=== PATIENT | female | born 1930 | race Two or more races ===

== ENCOUNTER 2019-06-28 19:33 | Inpatient (IN) | payer MEDICARE ==
[~2019-06-28] VITALS: Ht 165.1 cm; Wt 45.8 kg
[2019-06-28] MEDS ORDERED: CEFEPIME 1 GM in IV D5W 50 ML IV STA (19:40)
[2019-06-28] MEDS ORDERED: VANCOMYCIN 1 GM in IV D5W 250 ML IV STA (19:40)
[2019-06-28] MEDS ORDERED: IV NS 0.9% 1,000 ML IV ONE (19:40)
--- NOTE | 2019-06-28 19:41 | NUR ---
PT BIBRA C/O SYNCOPE PER . + HAS A FEVER. PER RA PT HAD THE HEATER ON ALL DAY WHICH HAS FEVER NOW. PER ASSESSMENT PT ABLE TO FOLLOW COMMANDS BUT UNABLE TO GIVE NAME OR . PT INTIALLY PALCED ON 2L NC SAT 94. NC WAS REMOVED AND PT IS SAT 90 ON ROOM AIR. ICE PACKS PLACED AND COOL BATH GIVEN TO PT. PT PLACED ON MONITOR AND PULSE OX. VSS. NO ACUTE DISTRESS NOTED. WILL CONTINUE TO MONITOR THE PT.
[2019-06-28 19:54] LABS: BASOPHILS % (AUTO) 0.4 % (0.0-2.0); EOSINOPHILS % (AUTO) 0.8 % (0.0-6.0); HEMATOCRIT 39 % (33-45); LYMPHOCYTES # (AUTO) 0.4 /CMM (0.8-4.8); LYMPHOCYTES % (AUTO) 4.5 % (20.0-44.0); MEAN CORPUSCULAR HGB CONC 34 g/dl (31.0-36.0); MEAN CORPUSCULAR VOLUME 93 fL (82-100); MONOCYTES # (AUTO) 0.3 /CMM (0.1-1.30); MONOCYTES % (AUTO) 3.3 % (2.0-12.0); NEUTROPHILS # (AUTO) 7.9 /CMM (1.8-8.9); PLATELET COUNT (AUTO) 242 /CMM (150-450); RED BLOOD CELL COUNT(AUTO) 4.18 MIL/uL (4.0-5.2); WHITE BLOOD COUNT (AUTO) 8.6 K/uL (4.3-11.0)
[2019-06-28] MEDS ORDERED: CEFEPIME 1 GM VIAL ONE (19:54)
[2019-06-28] MEDS ORDERED: VANCOMYCIN 1 GM VIAL ONE (19:54)
[2019-06-28] MEDS ORDERED: ACETAMINOPHEN 650 MG/SUPP.RECT RC ONE ×2 (19:54→20:00)
--- NOTE | 2019-06-28 19:57 | NUR ---
LESLEY (NIECE) CONTACT INFORMATION: [phone] [facility]: [place]
--- NOTE | 2019-06-28 20:06 | NUR ---
BLOOD CUTLURES COLLECTED AND SENT TO LAB FOR TESTING
[2019-06-28 20:10] LABS: ALANINE AMINOTRANSFERASE 23 U/L (12-78); ALBUMIN 3.7 g/dL (3.4-5.0); ALKALINE PHOSPHATASE 99 U/L (46-116); ASPARTATE AMINOTRANSFERASE 20 U/L (15-37); BILIRUBIN,DIRECT 0.1 mg/dL (0.0-0.2); BILIRUBIN,TOTAL 0.4 mg/dL (0.2-1.0); CALCIUM, SERUM 8.6 mg/dL (8.5-10.1); CARBON DIOXIDE 23 mmol/L (21-32); CHLORIDE 108 mmol/L (98-107); CREATININE 1.4 mg/dL (0.6-1.3); GLUCOSE 200 mg/dL (74-106); POTASSIUM 3.2 mmol/L (3.5-5.1); SODIUM SERUM 144 mmol/L (136-145); TOTAL PROTEIN, SERUM 7.4 g/dL (6.4-8.2); UREA NITROGEN, BLOOD 23 mg/dL (7-18)
--- NOTE | 2019-06-28 20:10 | NUR ---
URINE COLLECTED AND SENT TO LAB FOR TESTING
--- NOTE | 2019-06-28 20:11 | NUR ---
XRAY AT BEDSIDE
[2019-06-28 20:22] LABS: APPEARANCE,URINE Slightly Cloudy (CLEAR); BILIRUBIN,URINE SMALL (NEGATIVE); BLOOD, URINE Moderate Ery/uL (NEGATIVE); COLOR,URINE Yellow (YELLOW); KETONES,URINE Trace (NEGATIVE); LEUKOCYTE ESTERASE ,URINE Large (NEGATIVE); NITRITE, URINE Positive (NEGATIVE); PROTEIN,URINE 100 mg/dl (NEGATIVE); UGLUCOSE Negative (NEGATIVE); UROBILINOGEN,URINE 0.2 EU/dL (0.2)
[2019-06-28 20:27] LABS: BACTERIA,URINE Moderate /HPF (None Seen); SQUAMOUS EPITHELIAL CELL,UR Few /HPF (None Seen); WBC,URINE 51-80 /HPF (0-3)
[2019-06-28 20:33] LABS: B-TYPE NATRIURETIC PEPTIDE 1339 PG/ML (0-125)
--- NOTE | 2019-06-28 20:46 | NUR ---
PT RESTING COMFORTABLY. VSS. WILL COTNINUE TO MONITOR.
[2019-06-28 20:51] LABS: C-REACTIVE PROTEIN 0.4 mg/dL (0.0-0.9); CREATINE KINASE, TOTAL 51 U/L (26-192); FERRITIN 147 ng/mL (8-388)
--- NOTE | 2019-06-28 21:02 | NUR ---
CALLED LAB FOR COVID TEST
--- NOTE | 2019-06-28 21:27 | NUR ---
COVID TEST SENT TO LAB
--- NOTE | 2019-06-28 21:27 | NUR ---
RT AT BEDSIDE FOR ABG
--- NOTE | 2019-06-28 21:27 | NUR ---
MAUREEN DISCOVERY MANAGER AT BEDSIDE.
--- NOTE | 2019-06-28 21:27 | NUR ---
TEMP 98.2
--- NOTE | 2019-06-28 21:35 | NUR ---
BED ASSIGNMENT 104
[2019-06-28 21:40] LABS: ABG OXYGEN SATURATION 87.2 % (92.0-98.5); ABG PH 7.382 (7.350-7.450); ABG PO2 56.9 mmHg (75.0-100.0); AaDO2 53.3 mmHg; COHb 0.8 % (0.5-1.5); MetHb 0.5 % (0.0-1.5); O2Hb 86.1 % (94.0-97.0); SITE, ABG Right Radial; VENT MODE, BG ROOM AIR
--- NOTE | 2019-06-28 21:43 | NUR ---
PT PLACED ON 2L NC SAT 97.
--- NOTE | 2019-06-28 22:14 | NUR ---
REPORT GIVEN TO HOOD SEGURA FOR RICHA
[2019-06-28] MEDS ORDERED: ENOXAPARIN SODIUM 60 MG/0.6 ML DISP.SYRIN SQ STA (22:17)
--- NOTE | 2019-06-28 22:42 | NUR ---
PT TRANSFERED PER ACLS PROTOCOL
[2019-06-28 23:00] VITALS: BP 173/87
[2019-06-28] MEDS ORDERED: ZOLPIDEM TARTRATE 5 MG TABLET PO PRN (23:30)
[2019-06-28] MEDS ORDERED: ACETAMINOPHEN 325 MG TABLET PO PRN (23:30)
[2019-06-28] MEDS ORDERED: ONDANSETRON HCL/PF 4 MG/2 ML VIAL IVP PRN (23:30)
[2019-06-28] MEDS ORDERED: DEXTROSE 50%-WATER 50 ML DISP.SYRIN IV PRN (23:30)
[2019-06-28] MEDS ORDERED: MAGNESIUM HYDROXIDE 30 ML UDC PO PRN (23:30)
[2019-06-28] MEDS ORDERED: HYDROCODONE/APAP 5/325MG 1 EACH TABLET PO PRN (23:30)
[2019-06-28] MEDS ORDERED: Z GUARD REMEDY 2 OZ OINT TP PRN (23:30)
[2019-06-29] VITALS (9 sets, daily range): BP systolic 139–158; BP diastolic 59–81
--- NOTE | 2019-06-29 00:14 | NUR ---
ADMISSION NOTES: RECEIVED REPORT FROM BLANCHE PT WAS BROUGHT TO THE UNIT VIA GURNEY AT 2240. PT A/O X1-2 ON 2L OXYGEN VIA MN RUSSIAN SPEAKING, CHAS RADFORD HELP WITH TRANSLATION. SKIN ASSESSMENT PERFORMED. ASSISTED BOILING HOUSE HAND IN PROVIDING BED BATH TO PT. ORIENTED PT TO UNIT POLICY AND HOURLY ROUNDING HOWEVER PT UNABLE TO COMPREHEND DUE TO MENTAL STATUS. IV ACCESS PATENT AND FLUSHING WELL, ON HL. TELE MONITORING SINUS RHYTHM HR 67. VS TAKENA ND RECORDED. INVENTORY OF BELONGINGS COMPLETED BY CHAS RADFORD. CONTACTED PT'S POWER OF ATTY LESLEY FRENÁNDEZ WHO WOULD LIKE TO KEEP PT ON DNR AND DNI, NOTIFIED HOSPITALIST JOSE KENNEL ASSISTANT. PER LESLEY, PT WAS ON HOSPICE AT HOME, AND IF NEEDS FURTHER INFO REGARDING HER MEDS TO PLEASE CALL [facility] AT [phone]. CONTACTED HOSPICE CARE BUT NO ANSWER. WILL F/U IN AM. PER NIECE PT HAS HX OF DEMENTIA AND HTN, THROID PROBLEM. NO FLU AND PNA VACCINE. DISCUSSED ABOUT PLAN OF CARE. NOTIFIED KENNEL ASSISTANT REGARDING PT'S BP AND PER KENNEL ASSISTANT WILL ORDER METOPROLOL. ALL ADMISSION QUESTIONNAIRE COMPLETED, ALL INFO OBTAINED FROM PT'S POWER OF ATTY. SAFETY PRECAUTIONS FOR FALL INITIATED, CALL LIGHT IN REACH, WILL CONTINUE MONITORING PT.
[2019-06-29] MEDS: POTASSIUM CHLORIDE 20 MEQ POWDER PACKET PO SCH ×2 (00:27→08:10)
[2019-06-29] MEDS: IV NS 0.9% 1,000 ML IV PRN (00:28)
[2019-06-29] MEDS: METOPROLOL TARTRATE 25 MG TABLET PO SCH ×3 (00:56→22:00)
--- NOTE | 2019-06-29 03:03 | NUR ---
RN NOTES: NOTED PT'S HR 47, PT IS SLEEPING. WENT TO PT'S ROOM, PT RESPONSIVE, AROUSES TO TACTILE STIMULI, PT HR 56 NOW SHE'S AWAKE. REPOSITION PT AT THIS TIME. TAX COMPLIANCE REPRESENTATIVE AWARE.
--- NOTE | 2019-06-29 04:30 | NUR ---
rn notes: [facility] latest result of troponin 0.108. next trop order is 0800a. awaiting for response.
--- NOTE | 2019-06-29 04:54 | NUR ---
rn notes: telephone conversation with hospitalist, no new order receive for latest troponin result.
--- NOTE | 2019-06-29 06:29 | NUR ---
END OF SHIFT REPORT: PT REMAINS CONFUSED ON 2L OXYGEN VIA NC REMAINS ON CONTINUOUS PULSE OXIMETRY. ON SINUS RHYTHM HR 62. IV ACCESS REMAINS PATENT AND FLUSHING WELL, INFUSING WITH IVF ORDERED. ALL DUE MEDS ADMINISTERED. AM CARE PROVIDED. SAFETY PRECAUTIONS FOR FALL REMAINS ENGAGED, CALL LIGHT IN REACH, WILL ENDORSE TO DAY RN FOR CONTINUITY OF CARE.
--- NOTE | 2019-06-29 07:45 | NUR ---
EXTRUDING MACHINE OPERATOR OPENING NOTES PT A/OX1, CONFUSED, ROMANIAN SPEAKING. RESPIRATION UNLABORED, ON O2 AT 2LPM VIA N/C SATING 95-99%, ABD SOFT AND NON DISTENDED WITH ACTIVE BOWEL SOUNDS, DIAPER USE. NO S/SX OF PAIN AND DISCOMFORT. SKIN WARM TO TOUCH AND DRY. IV SITE AT RIGHT FA #18 AND LFA #22, PT WITH ORDER OF NS AT 75 ML/HR, STOPPED DUE TO PRESENCE OF HIGH BP, SOB AND COUGHING PER RN REPORT PRINCIPLE SOFTWARE ENGINEER, BOTH IV SITE PATENT IN FLUSHING, SITE WITH NO INFILTRATION. WILL CONTINUE TO MONITOR. TELE MONITOR SHOWS SINUS RHYTHM 65. ON ISOLATION DUE TO PENDING COVID-19 RESULT. BED IN LOW LOCKED POSITION, SR X2 UP FOR SAFETY. CALL LIGHT WITHIN REACH. WILL CONTINUE TO MONITOR CARE
[2019-06-29] MEDS: BLOOD SUGAR DIAGNOSTIC 1 EACH STRIP IN SCH ×4 (08:10→22:35)
[2019-06-29 08:43] LABS: BASOPHILS % (AUTO) 0.7 % (0.0-2.0); EOSINOPHILS % (AUTO) 1.1 % (0.0-6.0); HEMATOCRIT 38 % (33-45); HEMOGLOBIN 12.6 g/dL (11.5-14.8); LYMPHOCYTES # (AUTO) 0.6 /CMM (0.8-4.8); LYMPHOCYTES % (AUTO) 13.4 % (20.0-44.0); MEAN CORPUSCULAR HGB CONC 34 g/dl (31.0-36.0); MEAN CORPUSCULAR VOLUME 94 fL (82-100); MONOCYTES # (AUTO) 0.3 /CMM (0.1-1.30); MONOCYTES % (AUTO) 6.2 % (2.0-12.0); NEUTROPHILS # (AUTO) 3.6 /CMM (1.8-8.9); NEUTROPHILS % (AUTO) 78.6 % (43.0-81.0); PLATELET COUNT (AUTO) 174 /CMM (150-450); RED BLOOD CELL COUNT(AUTO) 4.02 MIL/uL (4.0-5.2); WHITE BLOOD COUNT (AUTO) 4.6 K/uL (4.3-11.0)
[2019-06-29 09:05] LABS: CALCIUM, SERUM 8.5 mg/dL (8.5-10.1); CREATININE 0.8 mg/dL (0.6-1.3); MAGNESIUM 2.2 mg/dL (1.8-2.4); PHOSPHORUS 2.9 mg/dL (2.5-4.9); POTASSIUM 4.3 mmol/L (3.5-5.1)
--- NOTE | 2019-06-29 09:50 | NUR ---
ELECTROLYSIS NEEDLE OPERATOR NOTES REPORT GIVEN TO DR. MARIA PER ASSESSMENT IF IVF INFUSED - PRESENCE OF SOB, SBP GOES UP TO 150-170'S. PER MD, OKAY NOT TO GIVE, ONLY PRN.
--- NOTE | 2019-06-29 09:56 | NUR ---
CRYSTAL GROWING TECHNICIAN NOTES PT ON METOPROLOL TARTRATE 25 MG, REPORT GIVEN TO DR. MARIA DUE TO HR TRENDING 50'S IF MEDICATION GIVEN. PER MD TO HOLD IF HR <50. PARAMETER NOTED AND CARRIED OUT. WILL CONTINUE TO MONITOR
[2019-06-29] MEDS ORDERED: LEVO50TA8 PO (10:33)
[2019-06-29] MEDS ORDERED: CHOL500052 PO (10:33)
[2019-06-29] MEDS ORDERED: ACET-2605 PO (10:33)
[2019-06-29] MEDS ORDERED: METO25TA20 PO (10:33)
--- NOTE | 2019-06-29 13:20 | NUR ---
PLATE FITTER NOTES PT ASLEEP. CONTINUE ON O2 AT 2LPM N/C 97-99%, TOLERATING WELL. HR RANGING 54-63 BPM. HOB ELEVATED FOR BREATHING EXPANSION. CONTINUE TO MONITOR
--- NOTE | 2019-06-29 15:42 | NUR ---
SUPERVISOR STAVE CUTTING NOTES BED BATH GIVEN TO PT. PPE USED PROPERLY. PT AT 2 LPM VIA N/C SATING 100%, REMAINED IN CONTACT ISOLATION DUE TO RULE OUT OF COVID-19. CONTINUE TO MONITOR
--- NOTE | 2019-06-29 18:43 | NUR ---
MINE BOSS CLOSING NOTES PT A/OX 1, CONFUSED DUE TO DEMENTIA. RESPIRATION WITH NO PRESENCE OF ACUTE RESPIRATORY DISTRESS, ON O2 AT 2LPM VIA N/C SATING 96-100%, SOB IN MINIMAL EXERTION SUCH REPOSITIONING AND EPISODES OF ANXIETY BUT ABLE TO DIVERT, HOB SEMI FOWLERS. ABD SOFT AND NON DISTENDED WITH ACTIVE BOWEL SOUNDS, BM X1, DIAPER CHANGE X2. SKIN WARM TO TOUCH AND DRY, WOUND TREATMENT ON SACRAL WITH ZGUARD AND MEPILEX, REPOSITION Q2 TOLERATED, BLE/HEELS OFFLOAD. PT HAS NO S/SX OF PAIN AND DISCOMFORT. ON CONTACT/DROPLET ISOLATION DUE TO COVID-19 PENDING. PPE USED PROPERLY. IV SITE AT RFA #18 AND LFA #22, PATENT IN FLUSHING, SITE WITH NO S/SX OF INFILTRATION, NS HELD DUE TO SOB PRESENCE, MD AWARE. BED IN LOW LOCKED POSITION, SR X2 FOR SAFETY. TELE MONITOR SHOWS SR 77 WITH EPISODES OF SINUS BRADYCARDIA 50'S. ENDORSED PT CARE TO NEXT SHIFT.
--- NOTE | 2019-06-29 19:50 | NUR ---
TELE/RN NOTES PATIENT IN BED, AWAKE, ABLE TO MAKE EYE CONTACT. ALERT X1, COOPERATIVE TO CARE, ON TELE MONITOR READING AT SR 67. ON OXYGEN VIA NC AT 4LITER OXYGEN, PATIENT SKIN FRAGILE WITH BLE DISCOLORATION. INCONTINENT AND FEEDER REQUIRE EXTENSIVE ASSISTANCE , WITH LOW GRADE FEVER OF 99.7 DEG F. RECEIVED ENDORSEMENT FROM AM RN FOR RICHA. PATIENT ISOLATION FOLLOWED PROTOCOL, WASHED HAND PROPERLY PPE DONNED AND DOFF. BED ALARM ON. WILL PROVIDE CARE. ON IN ANTIBIOTIC THERAPY MONITORING FOR ANY CHANGES IN VITAL SIGNS, BLOOD SUGAR CHECK MONITORING AND MONITORING FOR ANY BLEEDING PATIENT IS ON ANTICOAGULANT THERAPY.
[2019-06-29] MEDS: CEFTRIAXONE 1 G in IV D5W 50 ML IV SCH (20:16)
[2019-06-29] MEDS: ENOXAPARIN SODIUM 40 MG/0.4 ML DISP.SYRIN SQ SCH (22:02)
--- NOTE | 2019-06-29 22:02 | NUR ---
blood sugar check at 113. Addendum: 06/29/19 at 2220 by CHARO ALCANTAR RN NOT FOR THE PATIENT BS RESULT. PLS DISREGARD.
--- NOTE | 2019-06-29 22:54 | NUR ---
BLOOD SUGAR CHECK AT 93. PATIENT GAVE SOME SNACKS APPLESAUCE.
[2019-06-30] VITALS (8 sets, daily range): BP systolic 134–158; BP diastolic 62–80
--- NOTE | 2019-06-30 06:41 | NUR ---
104-TELE/RN CLOSING NOTES PATIENT ABLE TO SLEEP FEW HOURS INTERMITENTLY, ON OXYGEN VIA NC WITHSATURATION RATE OF 94%. TELE MONITOR AT SR 67. KEPT COMFORTABE, SKIN INTACT AND DRY. WITH CONFUSION, REQUIRE REORIENTATION. ISOLATION PRECAUTION FOLLOWED. SAFETY MEASURES PROVIDED, OFFERED AND PROVIDED SNACK, BED LOCKED, CALL LIGHTS WITHIN REACH. WILL MONITOR AND ENDORSE TO AM RN FOR RICHA.
[2019-06-30 07:03] LABS: BASOPHILS % (AUTO) 0.7 % (0.0-2.0); EOSINOPHILS % (AUTO) 4.6 % (0.0-6.0); HEMATOCRIT 33 % (33-45); HEMOGLOBIN 11.4 g/dL (11.5-14.8); LYMPHOCYTES # (AUTO) 0.6 /CMM (0.8-4.8); LYMPHOCYTES % (AUTO) 14.2 % (20.0-44.0); MEAN CORPUSCULAR HGB CONC 34 g/dl (31.0-36.0); MEAN CORPUSCULAR VOLUME 93 fL (82-100); MONOCYTES # (AUTO) 0.3 /CMM (0.1-1.30); MONOCYTES % (AUTO) 7.1 % (2.0-12.0); NEUTROPHILS % (AUTO) 73.4 % (43.0-81.0); PLATELET COUNT (AUTO) 144 /CMM (150-450); RED BLOOD CELL COUNT(AUTO) 3.55 MIL/uL (4.0-5.2); WHITE BLOOD COUNT (AUTO) 4.1 K/uL (4.3-11.0)
[2019-06-30 07:12] LABS: CALCIUM, SERUM 7.9 mg/dL (8.5-10.1); CREATININE 0.8 mg/dL (0.6-1.3); POTASSIUM 3.9 mmol/L (3.5-5.1)
--- NOTE | 2019-06-30 07:30 | NUR ---
LARRIMAN HELPER OPENING NOTES PT A/OX1, CONFUSED, TAMAZIGHT SPEAKING. RESPIRATION UNLABORED, ON O2 AT 2LPM VIA N/C SATING 95%, NOT IN ANY DISTRESS, RESPIRATION UNLABORED, SR HR 64, NO SIGNS OF PAIN OR DISCOMFORT,NO GRIMACING, LFA AND RFA IV ACCESS PULLED OUT. WILL RE START IN ANOTHER SITE. ON 2 GM SODIUM, CRUSH MEDS, ON ISOLATION DUE TO PENDING COVID-19 RESULT. SEE NURSING FOWSHEET FOR SKIN ISSUES. BED IN LOW LOCKED POSITION, SR X2 UP FOR SAFETY. CALL LIGHT WITHIN REACH. WILL CONTINUE TO MONITOR CARE
[2019-06-30] MEDS: BLOOD SUGAR DIAGNOSTIC 1 EACH STRIP IN SCH ×4 (08:03→22:50)
[2019-06-30] MEDS: METOPROLOL TARTRATE 25 MG TABLET PO SCH ×2 (09:07→20:06)
--- NOTE | 2019-06-30 09:30 | NUR ---
RN NOTES DUE MEDS GIVEN
--- NOTE | 2019-06-30 10:20 | NUR ---
RN NOTES IV RESTARTED ON LEFT FOREARM G 22. GOOD BLOOD RETURN
[2019-06-30] MEDS ORDERED: MISCELLANEOUS MED 1 EA EA PO PRN (14:30)
--- NOTE | 2019-06-30 18:26 | NUR ---
PHYSIOGNOMIST CLOSING NOTES PT RESTING, A/OX1, CONFUSED, BENGALI SPEAKING. RESPIRATION UNLABORED, ON O2 AT 2LPM VIA N/C SATING 93% -95%, NOT IN ANY DISTRESS, RESPIRATION UNLABORED, SR HR 64-80s, NO SIGNS OF PAIN OR DISCOMFORT,NO GRIMACING, LEFT FA G 22 IV ACCESS FLUSHES WELL. SITE CLEAR. ON 2 GM SODIUM, PUREED, CRUSH MEDS, ASPIRATION PRECAUTION, ON ISOLATION DUE TO PENDING COVID-19 RESULT. BED IN LOW LOCKED POSITION, SR X2 UP FOR SAFETY. TURNED AND REPOSITIONED Q 2HOURS. PM CARE DONE EARLIER. CALL LIGHT WITHIN REACH. ALL NEEDS MET. NO OTHER SIGNIFICANT CHANGES. WILL ENDORSE TO NEXT SHIFT FOR RICHA.
--- NOTE | 2019-06-30 19:30 | NUR ---
RN OPENING NOTE PT RESTING, A/OX1, CONFUSED, GERMAN SPEAKING. RESPIRATION UNLABORED, ON O2 AT 2LPM VIA N/C SATURATING AT 92% NOT IN ANY DISTRESS, RESPIRATION UNLABORED, NO SIGNS OF PAIN OR DISCOMFORT,NO GRIMACING, IV TO LEFT HAND FLUSHING WELL PATENT AND INTACT. ASPIRATION PRECAUTION IN PLACE, SOFT RESTRAINTS ON BILATERALLY. BED LOCKED AND IN LOWEST POSITION, SR X2 UP FOR SAFETY. CALL LIGHT WITHIN REACH. WILL CONTINUE TO MONITOR PT.
[2019-06-30] MEDS: CEFTRIAXONE 1 G in IV D5W 50 ML IV SCH (20:51)
[2019-06-30] MEDS: INSULIN REGULAR, HUMAN 100 UNIT/ML 3 ML VIAL SQ PRN (22:57)
[2019-06-30] MEDS: ENOXAPARIN SODIUM 40 MG/0.4 ML DISP.SYRIN SQ SCH (23:21)
--- NOTE | 2019-06-30 23:22 | NUR ---
RN NOTE SPOKE TO JOSE REDDY PT CAN GET LOVENOX. AWARE OF PLATELETS TRENDING DOWN. PT HAS NO S/S OG BLEEDING.
[2019-07-01] VITALS: BP 173/72
--- NOTE | 2019-07-01 01:20 | NUR ---
RN NOTE REPORT GIVEN TO IMELDA TRIMBLE. OKAY TO TRANSFER PT.
[2019-07-01 01:26] VITALS: BP 149/83
--- NOTE | 2019-07-01 01:26 | NUR ---
MS RN OPENING NOTE RECEIVED PATIENT IN BED. A/OX2, ON OXYGEN 4L/MIN NASAL CANNULA, RESPIRATIONS ARE EVEN AND UNLABORED, NO S/S SOB NOTED. NO S/S PAIN AT THIS TIME. IN NO APPARENT DISTRESS. IV ACCESS IN LEFT HAND #22 PATENT AND SALINE LOCKED, ON BILATERAL SOFT WRIST RESTRAINTS, NO REDNESS NOTED, 2 FINGER BREATHS OF ROOM. BED IS LOW AND LOCKED, HOB ELEVATED IN SEMI FOWLERS, ALICIA RIALS UP X3, CALL LIGHT WITHIN REACH. WILL CONTINUE TO MONITOR.
--- NOTE | 2019-07-01 02:55 | NUR ---
MS RN NOTE TRANSFER OF CARE TO BRENNA SEGURA.
--- NOTE | 2019-07-01 03:00 | NUR ---
RN medsurg opening notes Received Pt from IMELDA Schulte. Pt is resting in bed comfortably. Pt is alert and orientedX2. Pt speaks Kosovan and able to make needs known. Respiration is normal. No SOB. No S/S of distress noted. IV sites at L hand # 22 is clean, intact, and infusing well NS @ 75 ml/hr. Bilateral soft wrist restraints is intact, skin is warm to touch and circulation is check Q 2 hr. Turning and repositioning Q 2 HR. Offered oral fluids. Safety precautions is maintained. Bed at low position, brakes locked, side rails upX2, bed alarm is on and call light is within reach. Will continue to monitor.
[2019-07-01] MEDS: IV NS 0.9% 1,000 ML IV PRN (03:18)
--- NOTE | 2019-07-01 07:07 | NUR ---
RN medsurg closing notes Pt is resting in bed comfortably. Pt is alert and orientedX2. Respiration is normal in 4 L NC. No SOB. No S/S of distress noted. IV sites at L hand # 22 is clean, intact, and infusing well NS @ 75 ml/hr. Bilateral soft wrist restraints is intact, skin is warm to touch and circulation is check Q 2 hr. Turned and repositioned Q 2HR. Kept Pt clean, dry and comfortable. Safety precautions is maintained. Bed at low position, brakes locked, side rails upX2, bed alarm is on and call light is within reach. Will endorse to morning nurse for RICHA.
--- NOTE | 2019-07-01 07:10 | NUR ---
MS RN NOTES RECEIVED PATIENT IN BED, ALERT AND AWAKE. HOB ELEVATED. PATIENT REMOVED O2 AND WRIST RESTRAINTS. DESPITE OF EXPLANATIONS AND EDUCATION, PATIENT CONTINUES TO REMOVE IV TUBING AND RESTRAINTS. LEFT HAND # 22 INTACT AND PATENT INFUSING NS @ 75 ML/HR. BED IN LOWEST POSITION, LOCKED. BED ALARM ON. CALL LIGHT WITHIN REACH.
[2019-07-01] MEDS ORDERED: LEVOTHYROXINE SODIUM 50 MCG TABLET PO SCH (07:30)
[2019-07-01] MEDS: BLOOD SUGAR DIAGNOSTIC 1 EACH STRIP IN SCH ×2 (07:42→11:50)
[2019-07-01 08:00] VITALS: BP 160/80
[2019-07-01] MEDS: METOPROLOL TARTRATE 25 MG TABLET PO SCH (08:12)
--- NOTE | 2019-07-01 08:12 | NUR ---
MS RN NOTES PATIENT PULLED OUT IV ACCESS WITH CATHETER TIP IN PLACE.
[2019-07-01 08:31] LABS: BASOPHILS % (AUTO) 0.5 % (0.0-2.0); EOSINOPHILS % (AUTO) 1.8 % (0.0-6.0); HEMATOCRIT 37 % (33-45); HEMOGLOBIN 12.5 g/dL (11.5-14.8); LYMPHOCYTES # (AUTO) 0.5 /CMM (0.8-4.8); LYMPHOCYTES % (AUTO) 10.5 % (20.0-44.0); MEAN CORPUSCULAR HGB CONC 34 g/dl (31.0-36.0); MEAN CORPUSCULAR VOLUME 92 fL (82-100); MONOCYTES # (AUTO) 0.5 /CMM (0.1-1.30); MONOCYTES % (AUTO) 9.1 % (2.0-12.0); NEUTROPHILS # (AUTO) 3.9 /CMM (1.8-8.9); NEUTROPHILS % (AUTO) 78.1 % (43.0-81.0); PLATELET COUNT (AUTO) 176 /CMM (150-450); RED BLOOD CELL COUNT(AUTO) 4.08 MIL/uL (4.0-5.2)
--- NOTE | 2019-07-01 08:33 | NUR ---
WOUND CARE CONSULT: PT PREDSENTS WITH VERY FRAGILE SKIN, SCAR TO MIDBACK, DISCOLORATION TO BILATERAL ARMS, SACRAL INTACT DEEP TISSUE INJURY AND RAISED LESION TO PERIANAL AREA, PRESENT ON ADMISSION. RECOMMENDATIONS MADE FOR SKIN PROTECTION. DISCUSSED WITH NURSING STAFF. PT ON SOLOMON ISOFLEX LOW AIRLOSS BED. WILL SEE PRN. RAMON IN AGREEMENT WITH PLAN OF CARE. Addendum: 07/01/19 at 0834 by MARLON KUMAR WNDNU Amended: Links added.
[2019-07-01 08:51] LABS: CALCIUM, SERUM 8.3 mg/dL (8.5-10.1); CREATININE 0.7 mg/dL (0.6-1.3); POTASSIUM 3.5 mmol/L (3.5-5.1)
[2019-07-01] MEDS ORDERED: METOPROLOL TARTRATE 25 MG TABLET PO SCH ×2 (09:00→21:00)
--- NOTE | 2019-07-01 09:15 | NUR ---
MS RN NOTES PATIENT UNABLE TO BE BROUGHT TO CT DUE TO PATIENT NON COMPLIANT, CONFUSED AND UNABLE TO REMAIN STILL. WILL ATTEMPT AGAIN LATER PER CT. I
--- NOTE | 2019-07-01 09:27 | NUR ---
Patient uncooperative. IMELDA Ochoa aware and will notifiy Radiology when patient is calm and ready.
[2019-07-01] MEDS ORDERED: VALSARTAN 80 MG TABLET PO SCH (11:00)
[2019-07-01] MEDS: INSULIN REGULAR, HUMAN 100 UNIT/ML 3 ML VIAL SQ PRN (11:51)
--- NOTE | 2019-07-01 11:51 | NUR ---
MS RN NOTE BS 107MG/DL INSULIN NOT ADMINISTERED.
[2019-07-01] MEDS ORDERED: CEPH-569 PO (14:09)
[2019-07-01] MEDS ORDERED: VALS80TA2 PO (14:10)
[2019-07-01 16:00] VITALS: BP 150/70
--- NOTE | 2019-07-01 17:27 | NUR ---
MS RN NOTES PATIENT ALERT AND ORIENTED X1. HOB ELEVATED. ON ROOM AIR WITH SPO2 96%. NO SOB. DENIES ANY C/O PAIN NOR DISCOMFORT AT THIS TIME. NO IV ACCESS. REPORT GIVEN TO EMT ALONG WITH DISCHARGE INSTRUCTIONS AND DISCHARGE PACKET. ALL BELONGINGS ACCOUNTED FOR. CALLED AND SPPOJE TO [employer] DRIVER AND GAVE DISCHARGE INSTRUCTIONS VIA PHONE. PATIENT DISCHARGED TO HOME, PICKED UP BY AMBULANCE ACCOMPANIED BY 2 EMT VIA [facility] AND LEFT IN STABLE CONDITION.
[2019-07-02] MEDS ORDERED: ERGOCALCIFEROL (VITAMIN D 2) 50,000 UNIT CAPSULE PO SCH (09:00)
== END 2019-07-01 17:30 | disposition hospice, home (50) | DRG 871 ==
LOC: ER 19:36 → EDBD 19:36 → TELE1 21:46 → MEDSG1 06-30 20:00 → MED 07-01 01:15
PROVIDERS: ADMIT Nurse Practitioner Acute Care; ATTEND Nurse Practitioner Acute Care
DX: A41.9 Sepsis, unspecified organism (principal); I21.A1 Myocardial infarction type 2; J96.91 Respiratory failure, unspecified with hypoxia; N17.0 Acute kidney failure with tubular necrosis; I50.33 Acute on chronic diastolic (congestive) heart failure; E87.2 Acidosis; N39.0 Urinary tract infection, site not specified; G93.40 Encephalopathy, unspecified; I13.0 Hypertensive heart and chronic kidney disease with heart failure and stage 1 through stage 4 chronic kidney disease, or unspecified chronic kidney disease; E87.6 Hypokalemia; B96.20 Unspecified Escherichia coli [E. coli] as the cause of diseases classified elsewhere; R91.8 Other nonspecific abnormal finding of lung field; F03.90 Unspecified dementia, unspecified severity, without behavioral disturbance, psychotic disturbance, mood disturbance, and anxiety; E03.9 Hypothyroidism, unspecified; E86.0 Dehydration; F09 Unspecified mental disorder due to known physiological condition; R55 Syncope and collapse; R53.1 Weakness; Z66 Do not resuscitate; E11.22 Type 2 diabetes mellitus with diabetic chronic kidney disease; N18.9 Chronic kidney disease, unspecified; E11.65 Type 2 diabetes mellitus with hyperglycemia; Z51.5 Encounter for palliative care
CPT/HCPCS: 36415; 36600; 71045-TC; 80048-TC; 80061-TC; 80076-TC; 81000-TC; 82550-TC; 82728-TC; 82962-TC; 83605-TC; 83615-TC; 83735-TC; 83880; 84100-TC; 84484-TC; 85025-TC; 85378-TC; 85730-TC; 86140-TC; 87040-TC; 87081-TC; 87086-TC; 87186-TC; 93307-TC; 97112-TC; 97530-TC; A4216; G0378; J0692; J0696; J1650; J1815; J3370; J7030; J7060